=== PATIENT | female | born 1980 | race Asian ===

== ENCOUNTER 2020-03-19 11:03 | Emergency (ER) | payer SELFPAY ==
[~2020-03-19] VITALS: Ht 160 cm; Wt 68.2 kg
[2020-03-19 11:11] VITALS: BP 152/89
== END 2020-03-19 12:47 | disposition home or self-care (01) ==
LOC: EMS 11:06
DX: Z20.828 Contact with and (suspected) exposure to other viral communicable diseases (principal)
CPT/HCPCS: 99283; U0003